=== PATIENT | male | born 1940 | race Caucasian/White ===

== ENCOUNTER 2017-04-02 11:52 | Emergency (ER) | payer OTHER ==
[~2017-04-02] VITALS: Ht 172.7 cm; Wt 101.4 kg
[~2017-04-02 11:52] MED LIST: ALBU1AER9 INH; ASPEC81 PO; ATEN-173 PO; GLC500 PO; LPT10 PO; LSN5 PO; MULT-506 PO; NTRGSL/4 UT; OMEG10007 PO
[2017-04-02 12:05] VITALS: TEMP 36.7; Ht 172.7 cm; Wt 101.4 kg
[2017-04-02] MEDS ORDERED: XYLOCAINE 1%/SOD BICARB 20 ML VIAL INFIL ONE (12:30)
[2017-04-02] MEDS ORDERED: ASPI81TA28 PO (12:51)
[2017-04-02] MEDS ORDERED: METF500T5 PO (12:51)
[2017-04-02] MEDS ORDERED: ATOR-24 PO (12:51)
--- NOTE | 2017-04-02 13:07 | EMERGENCY ROOM VISIT NOTE ---
ED Visit Note First contact with patient: 12:12 CHIEF COMPLAINT: Left Arm laceration HISTORY OF PRESENT ILLNESS: This 36-year-old male presents the ER with chief complaint of a laceration to his left forearm. The patient states that he was using a cutting wheel and accidentally cut into his left forearm. The patient denies any active bleeding. He denies any known since tingling in his fingers. The patient states he is able to move his wrist without difficulty. The patient's tetanus is up-to-date. REVIEW OF SYSTEMS: 6 system review was performed and was negative unless stated otherwise in history of present illness. PMH: The patient is healthy; see chronic problem list. This was reviewed with the patient. Only additional surgery was cardiac stent placement. SOCIAL HISTORY: Patient lives with his . The patient admits to tobacco use but denies any alcohol use. PHYSICAL EXAM: Vital Signs: Were reviewed Reviewed Nurse's notes. GENERAL: 76- year-old white male appears in no acute distress. MENTAL STATUS: Alert and oriented 3. LEFT ARM: There is a 6 cm long laceration on the anterior aspect of the forearm. The edges are gaping widely apart. There is no foreign material in the wound and it looks slightly dirty. There is no active bleeding. No deep structures such as tendons or nerves are seen in the base of the wound. EMERGENCY DEPARTMENT COURSE: The patient was evaluated. The patient's EMR and medication list were reviewed. PROCEDURE:Wound Repair: Complexity: Basic. Verbal consent was obtained after the risks and benefits were explained, including but not limited to bleeding, scarring, infection, pain, and bone/joint /nerve damage. The skin was prepped with betadine and a sterile field set. The wound was anesthetized with 6.0 ml of 1% buffered lidocaine. With direct pressure the bleeding subsided. Copious irrigation was performed using sterile saline. The wound was explored for foreign bodies and none found. Debridement was not performed. The wound edges were approximated using 5-0 Ethilon with 8 simple interrupted sutures. Hemostasis and excellent approximation was achieved. Antibacterial ointment and a sterile dressing applied. Detailed wound care instructions and signs and symptoms of infection reviewed with the patient. No complications and the patient tolerated the procedure well. The patient was independently evaluated by Dr. Jimenez who agreed with treatment plan. The patient is diabetic therefore he was given Keflex 500 mg by mouth while in the emergency room and was given a Keflex home pack to take tomorrow since his pharmacy is closed. The patient was discharged home in stable condition. DIAGNOSIS: 6 cm left arm laceration DISCHARGE INSTRUCTIONS & TREATMENT: Take Keflex as prescribed. Watch the area carefully for signs of infection such as redness, swelling, or tenderness. Return if any of these appear for re-evaluation and consideration IV antibiotic therapy. The stitches should be taken out in 10 days. Read the wound care general instructions that you were given also. Bacitracin and a bandage on the wound for 3 days. Keep wound dry for 24 hours then you may get it wet but do not soak the arm in water. Problem List Medical Problems: (1) COPD (chronic obstructive pulmonary disease) Status: Chronic (2) Coronary artery disease Permanent Comment: S/P stenting RCA Status: Chronic (3) Diabetes mellitus, type II Status: Chronic (4) Dyslipidemia Status: Chronic (5) History of adenomatous polyp of colon Status: Chronic (6) Hypertension Status: Chronic (7) Status post hernia repair Status: Chronic (8) Tobacco use Status: Chronic Surgical Problems: (1) Status post cholecystectomy Permanent Comment: 2010 Dr. Rivera Status: Chronic (2) Status post coronary artery stent placement Permanent Comment: PCI RCA with stenting [facility] – [place] Status: Chronic (3) Status post partial colectomy Status: Chronic Current/Historical Medications Scheduled Aspirin (Aspirin Ec), 81 MG PO DAILY Atorvastatin (Lipitor), 40 MG PO DAILY Fish Oil (Mooers-3), 1 CAP PO DAILY Lisinopril (Lisinopril), 5 MG PO DAILY Metformin Hcl Er (Glucophage Er), 500 MG PO QPM Multivitamin (Multivitamin), 1 TAB PO DAILY Nitroglycerin (Nitrostat), 0.4 MG UT PRN Allergies Coded Allergies: No Known Allergies (Verified , 04/02/17) Vital Signs Date Time Temp Pulse Resp B/P (MAP) Pulse Ox O2 Delivery O2 Flow Rate FiO2 04/02/17 12:05 36.7 82 20 157/85 94 Room Air Departure Information Referrals Barry Arzola M.D.([facility]) (PCP) Patient Instructions My [facility]
[2017-04-02] MEDS ORDERED: CEPH500C PO (13:09)
[2017-04-02] MEDS ORDERED: CEPHALEXIN 500MG HOME PACK 1 EA BTL PO ONE (13:15)
[2017-04-02] MEDS ORDERED: CEPHALEXIN MONOHYDRATE 250 MG CAP PO ONE (13:15)
[2017-04-02 13:32] VITALS: BP 141/80; PULSE 71; O2SAT 94
--- NOTE | 2017-04-02 15:58 | EMERGENCY ROOM VISIT NOTE ---
ED Visit Note First contact with patient: 12:12 I have personally seen and evaluated the patient with the PA. I agree with the diagnosis and management decisions and have been personally involved in the case. Please see Cleo smart PA-C's notes for further details of the history, physical and visit.
== END 2017-04-02 13:36 | disposition home or self-care (01) ==
LOC: C.EDB 11:53 → C.EDD 13:36
DX: S51.812A Laceration without foreign body of left forearm, initial encounter (principal); W31.1XXA Contact with metalworking machines, initial encounter; J44.9 Chronic obstructive pulmonary disease, unspecified; I25.10 Atherosclerotic heart disease of native coronary artery without angina pectoris; E11.9 Type 2 diabetes mellitus without complications; E78.5 Hyperlipidemia, unspecified; I10 Essential (primary) hypertension; Z79.82 Long term (current) use of aspirin; Z79.899 Other long term (current) drug therapy; Z72.0 Tobacco use

== ENCOUNTER 2025-02-25 11:14 | Inpatient (IN) ==
[2025-02-25 12:11] LABS: Hematocrit (blood only) 35.0 % (42.0-52.0); Hemoglobin 11.5 g/dl (14.0-18.0); Immature Granulocytes # (auto) 0.04 K/uL (0.01-0.20); Immature Granulocytes % (auto) 0.7 %; Mean Corpuscular Hemoglobin 29.6 pg (25.0-34.0); Mean Corpuscular Volume 90.2 fL (80.0-100.0); Platelet Count 270 K/uL (130-400); RDW Standard Deviation 51.2 fL (36.4-46.3); Red Blood Count 3.88 M/uL (4.70-6.10); White Blood Count 5.97 K/ul (4.8-10.8)
[2025-02-25] MEDS: SODIUM CHLORIDE 0.9% 1,000 ML IV SCH ×2 (12:15→17:35)
--- NOTE | 2025-02-25 12:32 | XRay Report ---
XR chest 1V portable CLINICAL HISTORY: weakness COMPARISON STUDY: 02/21/2025 FINDINGS: Stable cardiomegaly with pulmonary vascular congestion. Stable mild stranding opacity in th e lung bases. No lobar consolidation, pleural effusion, or pneumothorax seen. IMPRESSION: Stable exam. ACT 112: Negative or not required by law. Electronically signed by: Medardo Frances M.D. 02/25/2025 12:31 PM
[2025-02-25 12:33] LABS: Alanine Aminotransferase 27 U/L (7-52); Albumin Globulin Ratio 1.0 (0.9-2); Alkaline Phosphatase 125 U/L (34-104); Anion Gap 9 (3-11); Bilirubin,Total 0.6 mg/dl (0.2-1.0); Blood Urea Nitrogen 11 mg/dl (6-23); Calcium 8.6 mg/dl (8.6-10.3); Carbon Dioxide 26 mmol/L (21-32); Chloride 105 mmol/L (98-107); Globulin 3.1 gm/dl (2.5-4.0); Glucose 130 mg/dl (70-99(Fasting)); Potassium 3.9 mmol/L (3.5-5.1); Sodium 140 mmol/L (136-145); Total Protein 6.3 gm/dl (6.0-8.3)
[2025-02-25 12:42] LABS: INR 1.1 (0.9-1.1); Prothrombin Time 11.4 Seconds (9.0-12.0)
--- NOTE | 2025-02-25 13:01 | CT Scan Report ---
CT head/brain wo con CLINICAL HISTORY: 84 years-old Male with weakness, SDH. Acute weakness TECHNIQUE: Multiple axial CT images of the head were obtained without contrast. A dose lowering tech nique was utilized adhering to the principles of ALARA. CT DOSE: 703.85 mGy.cm COMPARISON: Head CT 02/21/2025, brain MRI 04/26/2006 FINDINGS: No acute intracranial hemorrhage, midline shift, intracranial mass, hydrocephalus, territorial ischem ia or abnormal extra-axial collection. Involutional changes with chronic microvascular ischemic disea se. Coarse calcifications of the falx cerebri. The calvarium is intact. Bilateral mastoid effusions. The paranasal sinuses are generally clear. IMPRESSION: 1. No acute intracranial abnormality. 2. Involutional changes with chronic microvascular ischemic disease. 3. Prominence of the subdural spaces has been present dating back to the 2005 MRI secondary to cerebr al atrophy. No subdural hemorrhage is present on today's study or on the 02/21/2025 exam. ACT 112: Negative or not required by law. The above report was generated using voice recognition software. It may contain grammatical, syntax o r spelling errors. Electronically signed by: Joseph Quezada M.D. 02/25/2025 12:58 PM
[2025-02-25 13:09] LABS: Magnesium 1.8 mg/dl (1.7-2.4)
[2025-02-25 13:25] LABS: Thyroid Stimulating Hormone 2.452 uIu/ml (0.300-4.500)
[2025-02-25] MEDS ORDERED: MAGNESIUM HYDROXIDE SUSP 30 ML UDC PO PRN (14:15)
[2025-02-25] MEDS ORDERED: GLUCOSE 40% GEL 15 GM TUBE PO PRN (14:15)
[2025-02-25] MEDS ORDERED: ONDANSETRON INJ 2 MG/ML 2 ML VIAL IV PRN (14:15)
[2025-02-25] MEDS ORDERED: ALUMINUM/MAGNESIUM SUSP 30 ML UDC PO PRN (14:15)
[2025-02-25] MEDS ORDERED: DEXTROSE 50% 50 ML SYRINGE IV PRN (14:15)
[2025-02-25] MEDS ORDERED: GLUCOSE 10 TAB/TUBE PO PRN (14:15)
[2025-02-25] MEDS ORDERED: ACETAMINOPHEN 325 MG TAB PO PRN (14:15)
[2025-02-25] MEDS ORDERED: CARBOHYDRATES FOR HYPOGLYCEMIA PO PRN (14:15)
[2025-02-25] MEDS ORDERED: GLUCAGON FOR INJ 1 MG VIAL SQ PRN (14:15)
[2025-02-25] MEDS ORDERED: ALBUTEROL 0.083% NEBU SOLN 3 ML VIAL INH PRN (14:51)
--- NOTE | 2025-02-25 15:11 | Emergency Department Note ---
ED Provider Note CHIEF COMPLAINT: Hypotension, falls HISTORY OF PRESENT ILLNESS: This 84-year-old male patient with past medical history of recurrent falls, chronic anticoagulation presents to the emergency department with complaints of dizziness and low blood pressure. The patient was recently sent to [facility] for a subdural hematoma however after being evaluated by neurosurgery and was told this was a chronic finding. The patient has continued his anticoagulation and blood pressure medications as advised. He has been having persistently low blood pressures between his outpatient visit and PCP. Patient's son is at the bedside and states he lives at home by himself. They are concerned about his recurrent hypotension and would like to be admitted to the hospital for medication adjustments and safety of the patient. REVIEW OF SYSTEMS: A review of systems was performed with positives and pertinent negatives listed in the history of present illness. 10 systems were reviewed and are otherwise negative. ALLERGIES: see below MEDICATIONS: see below PMH: see below SOCIAL HISTORY: see below DDx: Dehydration, medication effect, UTI, intracranial hemorrhage, GI bleed/anemia among others. PHYSICAL EXAM: Vital signs reviewed. Noted to be hypotensive. General: Chronically ill-appearing 84-year-old male, in no significant distress. HEENT: No scleral icterus/conjunctival injection, PERRLA, neck supple. Older appearing ecchymosis noted to the right forehead. Cardiovascular: Regular rate and rhythm, no extra sounds. Pulmonary: Clear to auscultation bilaterally, normal work of breathing. Abdomen: Soft, nontender, nondistended, positive bowel sounds. Musculoskeletal: Atraumatic, no peripheral edema. Neurologic: Patient awake alert and oriented x 3, speech is clear. Answers all questions appropriately and follows commands. Equal strength in all 4 extremities. Skin: Warm, dry, no rash EMERGENCY DEPARTMENT COURSE/MDM: [] MONITORING: An order for cardiac monitoring was placed and the patient is noted to be in a normal sinus rhythm at 62 beats per minute. RADIOLOGY: Head CT: IMPRESSION: 1. No acute intracranial abnormality. 2. Involutional changes with chronic microvascular ischemic disease. 3. Prominence of the subdural spaces has been present dating back to the 2005 MRI secondary to cerebral atrophy. No subdural hemorrhage is present on today's study or on the 02/21/2025 exam. Chest x-ray to my interpretation reveals no evidence of focal lung consolidation or failure. EKG: To my interpretation reveals atrial fibrillation at 70 bpm, QTc of 462. Normal ST segments. No PVC, no PAC. DISPOSITION: Home Past Med/Surg History Problem List Fall (Acute) Trauma (Acute) Subdural hematoma (Acute) History of colon polyps Encounter for pre-operative examination Chest pain (Acute) Hypertension (Chronic) Diabetes mellitus, type II (Chronic) Dyslipidemia (Chronic) COPD (chronic obstructive pulmonary disease) (Chronic) Status post hernia repair (Chronic) Tobacco use (Chronic) History of adenomatous polyp of colon (Chronic) Status post cholecystectomy (Chronic) "2010 Dr. Rivera" Status post partial colectomy (Chronic) perforated colon during colonoscopy Coronary artery disease (Chronic) "S/P stenting RCA"--follows with Dr. Garcia Status post coronary artery stent placement (Chronic) "PCI RCA with stenting [facility] [place]" Medical History BPH (benign prostatic hyperplasia) Diabetes mellitus, type 2 Hearing deficit Hypertension Hyperlipidemia Asthma Surgical History History of lumbar spinal fusion x2 History of umbilical hernia repair x2 History of appendectomy History of colonoscopy roughly 10yrs ago had a perforated colon during a colonoscopy---had to had an emergency colectomy History of tooth extraction all teeth History of tonsillectomy and adenoidectomy History of bilateral cataract extraction Family History Other No family history of adverse response to anesthesia Social History Smoking Status: Current every day smoker Tobacco Type: Cigarettes Cigarettes Per Day: 10 a day; Second Hand Exposure: Yes (parents smoked); Do You Dip or Chew Tobacco: No; Hx Alcohol Use: No Hx Substance Use: No Preferred Language: Montserratian Communication Ability: Effective Plug Paster Required: No Beliefs That Will Affect Care: Taoism Current Living Situation: Spouse Feels Safe at Home: Yes Assistive Devices: Denture - Upper, Denture - Lower, Glasses and Hearing Aid - Bilateral Allergies Allergies Allergy/AdvReac Type Severity Reaction Status Date / Time No Known Allergies Allergy Mild Verified 02/25/25 14:36 Home Meds Home Medications Medication Instructions Recorded Confirmed aspirin 81 mg tablet,delayed 81 mg PO QAM 05/14/19 02/25/25 release atorvastatin 40 mg tablet 40 mg PO HS 05/14/19 02/25/25 finasteride 5 mg tablet 5 mg PO QAM 05/14/19 02/25/25 fluocinonide 0.05 % topical 1 applic topical BID PRN Rash 05/14/19 02/25/25 ointment lisinopril 20 mg tablet 0 mg PO QAM 05/14/19 02/25/25 magnesium oxide 400 mg PO QPM 05/14/19 02/25/25 metformin 500 mg tablet,extended 1,000 mg PO PM 05/14/19 02/25/25 release 24 hr nitroglycerin 0.4 mg sublingual 0.4 mg sublingual DIRECTED PRN 05/14/19 02/25/25 tablet Angina albuterol sulfate 2.5 mg/3 mL 2.5 mg continuous nebulization Q4H 02/21/25 02/25/25 (0.083 %) solution for nebulization PRN Shortness Of Breath Or Wheezing apixaban 5 mg tablet (Eliquis) 5 mg PO BID 02/21/25 02/25/25 escitalopram oxalate 5 mg tablet 5 mg PO QAM 02/21/25 02/25/25 fluticasone fur. 100 mcg-umeclid 1 inh inhalation DAILY 02/21/25 02/25/25 62.5 mcg-vilant 25 mcg inhalat.powder (Trelegy Ellipta) furosemide 20 mg tablet 20 mg PO QAM 02/21/25 02/25/25 metoprolol succinate 25 mg 25 mg PO BID 02/21/25 02/25/25 tablet,extended release 24 hr tamsulosin 0.4 mg capsule 0.8 mg PO DAILY 02/21/25 02/25/25 Results & Data (ED) Vital Signs Vital Signs - 24 hr 02/25/25 11:16 02/25/25 11:38 02/25/25 11:45 Temperature 36.6 C Temperature Source Oral Pulse Rate 69 61 58 L Pulse Rate [Apical] Respiratory Rate 20 16 14 Blood Pressure 109/65 91/55 L Blood Pressure [Left Arm] Blood Pressure Mean 80 67 Blood Pressure Mean [Left Arm] Pulse Oximetry 96 96 95 Oxygen Delivery Method Room Air Sepsis Recent Fever Within 48 Hours No Sepsis New/Unexplained Change in Mental Status Yes Sepsis Action Taken by Nursing No Action Required 02/25/25 12:09 02/25/25 12:16 02/25/25 12:53 Temperature Temperature Source Pulse Rate 64 68 73 Pulse Rate [Apical] Respiratory Rate 16 18 Blood Pressure 94/60 L 112/66 Blood Pressure [Left Arm] Blood Pressure Mean 71 70 Blood Pressure Mean [Left Arm] Pulse Oximetry 94 96 Oxygen Delivery Method Sepsis Recent Fever Within 48 Hours Sepsis New/Unexplained Change in Mental Status Sepsis Action Taken by Nursing 02/25/25 13:00 02/25/25 13:00 Temperature Temperature Source Pulse Rate Pulse Rate [Apical] 62 Respiratory Rate 17 Blood Pressure Blood Pressure [Left Arm] 105/61 Blood Pressure Mean Blood Pressure Mean [Left Arm] 75 Pulse Oximetry 95 95 Oxygen Delivery Method Room Air Room Air Sepsis Recent Fever Within 48 Hours Sepsis New/Unexplained Change in Mental Status Sepsis Action Taken by Long-Term Medications Current Medication List: was personally reviewed by me Laboratory Data Attestation: I reviewed the patient's lab results. 02/25/25 11:33 02/25/25 11:33 Lab Results 02/25/25 02/25/25 Range/Units 11:33 12:29 WBC 5.97 (4.8-10.8) K/ul RBC 3.88 L (4.70-6.10) M/uL Hgb 11.5 L (14.0-18.0) g/dl Hct 35.0 L (42.0-52.0) % MCV 90.2 (80.0-100.0) fL MCH 29.6 (25.0-34.0) pg MCHC 32.9 (32.0-36.0) g/dL RDW Std Deviation 51.2 H (36.4-46.3) fL RDW Coeff of Mati 15.5 H (11.5-14.5) % Plt Count 270 (130-400) K/uL MPV 9.9 (9.4-12.4) fL Immature Gran % (Auto) 0.7 % Neut % (Auto) 76.9 % Lymph % (Auto) 14.2 % Will % (Auto) 7.0 % Eos % (Auto) 0.7 % Baso % (Auto) 0.5 % Neut # (Auto) 4.59 (1.40-6.50) K/uL Lymph # (Auto) 0.85 L (1.20-3.40) K/uL Will # (Auto) 0.42 (0.11-0.59) K/uL Eos # (Auto) 0.04 (0.00-0.50) K/uL Baso # (Auto) 0.03 (0.00-0.20) K/uL Immature Gran # (Auto) 0.04 (0.01-0.20) K/uL PT 11.4 (9.0-12.0) Seconds INR 1.1 (0.9-1.1) Sodium 140 (136-145) mmol/L Potassium 3.9 (3.5-5.1) mmol/L Chloride 105 (98-107) mmol/L Carbon Dioxide 26 (21-32) mmol/L Anion Gap 9 (3-11) BUN 11 (6-23) mg/dl Creatinine 0.86 (0.6-1.4) mg/dl Est Cr Clr Drug Dosing Not Reportable eGFR 86.45 BUN/Creatinine Ratio 12.8 (10-20) Glucose 130 H (70-99(Fasting)) mg/dl Lactate 1.9 (0.4-2.0) mmol/L Calcium 8.6 (8.6-10.3) mg/dl Magnesium 1.8 (1.7-2.4) mg/dl Total Bilirubin 0.6 (0.2-1.0) mg/dl AST 85 H (13-39) U/L ALT 27 (7-52) U/L Alkaline Phosphatase 125 H (34-104) U/L Troponin I High Sens 40.5 H 36.7 H (0-20) pg/ml B-Natriuretic Peptide 696 H (0-100) pg/ml Total Protein 6.3 (6.0-8.3) gm/dl Albumin 3.2 L (3.4-5.0) gm/dl Globulin 3.1 (2.5-4.0) gm/dl Albumin/Globulin Ratio 1.0 (0.9-2) TSH 2.452 (0.300-4.500) uIu/ml Administered Medications Sodium Chloride (Nss) 1,000 mls @ 200 mls/hr IV .Q5H CORNELL Stop: 02/25/25 17:14 Last Admin: 02/25/25 12:15 Dose: 200 mls/hr Documented By: ROBERT Imaging Data Radiologist's Impression: Head CT 02/25/25 12:10 CT head/brain wo con CLINICAL HISTORY: 84 years-old Male with weakness, SDH. Acute weakness TECHNIQUE: Multiple axial CT images of the head were obtained without contrast. A dose lowering technique was utilized adhering to the principles of ALARA. CT DOSE: 703.85 mGy.cm COMPARISON: Head CT 02/21/2025, brain MRI 04/26/2006 FINDINGS: No acute intracranial hemorrhage, midline shift, intracranial mass, hydrocephalus, territorial ischemia or abnormal extra-axial collection. Involutional changes with chronic microvascular ischemic disease. Coarse calcifications of the falx cerebri. The calvarium is intact. Bilateral mastoid effusions. The paranasal sinuses are generally clear. IMPRESSION: 1. No acute intracranial abnormality. 2. Involutional changes with chronic microvascular ischemic disease. 3. Prominence of the subdural spaces has been present dating back to the 2005 MRI secondary to cerebral atrophy. No subdural hemorrhage is present on today's study or on the 02/21/2025 exam. ACT 112: Negative or not required by law. The above report was generated using voice recognition software. It may contain grammatical, syntax or spelling errors. Electronically signed by: Joseph Quezada M.D. 02/25/2025 12:58 PM Chest X-Ray 02/25/25 12:11 XR chest 1V portable CLINICAL HISTORY: weakness COMPARISON STUDY: 02/21/2025 FINDINGS: Stable cardiomegaly with pulmonary vascular congestion. Stable mild stranding opacity in the lung bases. No lobar consolidation, pleural effusion, or pneumothorax seen. IMPRESSION: Stable exam. ACT 112: Negative or not required by law. Electronically signed by: Medardo Frances M.D. 02/25/2025 12:31 PM Discharge Plan Visit Data Chief Complaint: Referred by Doctor Stated Complaint: LOW BP,DOC REF ED Provider: Nuria Jimenez Forms Stand Alone Forms: My [employer] Prescriptions Prescriptions: No Action atorvastatin 40 mg Tablet 40 mg PO HS lisinopril 20 mg Tablet 0 mg PO QAM Rx Instructions: Per pharmacy, this medication is discontinued. However pt states he is still taking. There is a 30mg on file, and it is also discontinued. Original Directions: 20mg by mouth in the morning fluocinonide 0.05 % Ointment 1 applic TOPICAL BID PRN (Reason: Rash) aspirin 81 mg Tablet,Delayed Release (Dr/Ec) 81 mg PO QAM Rx Instructions: Unable to verify OTC meds at this date/time. nitroglycerin 0.4 mg Tablet, Sublingual 0.4 mg sublingual DIRECTED PRN (Reason: Angina) metformin 500 mg Tablet Extended Release 24 Hr 1,000 mg PO PM finasteride 5 mg Tablet 5 mg PO QAM magnesium oxide 400 mg magnesium Tablet 400 mg PO QPM Rx Instructions: Unable to verify OTC meds at this date/time. albuterol sulfate 2.5 mg /3 mL (0.083 %) solution for nebulization 2.5 mg continuous nebulization Q4H PRN (Reason: Shortness Of Breath Or Wheezing) tamsulosin 0.4 mg capsule 0.8 mg PO DAILY furosemide 20 mg tablet 20 mg PO QAM metoprolol succinate 25 mg tablet extended release 24 hr 25 mg PO BID escitalopram oxalate 5 mg tablet 5 mg PO QAM Eliquis 5 mg tablet 5 mg PO BID Trelegy Ellipta 100-62.5-25 mcg blister with device 1 inh INHALATION DAILY Referrals Referrals: Caleb Pérez MD [Primary Care Provider] -
--- NOTE | 2025-02-25 15:22 | History & Physical Report ---
Date of Service February 25, 2025 Assessment & Plan (1) Fall: Plan Hypotension Possible orthostatic hypotension component: for fall Frequent falls Patient reports dealing with issues of low blood pressure and dizziness for a long time, recently worsened. Patient reports legs giving out and falls, about 3 falls in the last week. Patient on blood thinner, CT head with no acute finding. Will hold home medications, lisinopril Lasix and tamsulosin. Orthostatic vitals, continue telemetry monitoring PT/OT, compression stockings, slow transition during changing position. Possible UTI: Patient complains of pain and burning with passing urine for about a week time, will initiate Rocephin, will get urinalysis, follow. Paroxysmal A-fib: Patient on Eliquis, has been having recurrent falls, if patient's blood pressure does not improve and he continues to have recurrent falls, then risks and benefits of continuing anticoagulation needs to be discussed with the patient and his family. For now continue Eliquis while in hospital, maintain fall precaution. Other chronic medical conditions: T2DM, COPD, SVT, pulmonary hypertension, BPH. Continue with/resume home meds as and when able. SSI. DVT prophylaxis: Eliquis Full DNR/DNI History of Present Illness Chief Complaint: Fall, low blood pressure Primary Care Provider: Caleb Pérez MD 84-year-old male with PMH of T2DM, COPD, CAD, HTN, SVT, PAF on Eliquis, pHTN, BPH with LUTS, E. tube dysfunction, SNHL bilateral, psoriasis presents to the ED at referral of PCP office for recurrent falls and low blood pressure. Patient reports he has been having issues of low blood pressure and dizziness for months now, he stopped his Flomax and finasteride few weeks ago and experienced improvement in his dizziness and low blood pressure. But he started having trouble urinating and he restarted the these medications last week since then he has had low blood pressure and 3 falls. Today he was being evaluated in the PCP office, he stated that he had lightheadedness when he stood up from sitting position to go to the examination room, his blood pressure was noted to be 80/41. Patient denies fever/sore throat/cough/nausea/vomiting/diarrhea. Patient reports moving bowels ok and reports good appetite. Patient reports pain and burning while passing urine for about a week time. Will get urinalysis. Patient reports continuing smoking about half pack a day now, has been smoking for 60 years. Denies alcohol and recreational drugs. Medications reviewed with the patient and his children at bedside. DNI/DNI Plan of care discussed with the patient and his children at bedside, they voiced understanding. Allergies Allergy/AdvReac Type Severity Reaction Status Date / Time No Known Allergies Allergy Mild Verified 05/22/19 08:12 Home Medications Medication Instructions Recorded Confirmed Type aspirin 81 mg tablet,delayed 81 mg PO QAM 05/14/19 02/21/25 History release atorvastatin 40 mg tablet 40 mg PO HS 05/14/19 02/21/25 History finasteride 5 mg tablet 5 mg PO QAM 05/14/19 02/21/25 History fluocinonide 0.05 % topical 1 applic topical BID PRN Rash 05/14/19 02/21/25 History ointment lisinopril 20 mg tablet 20 mg PO QAM 05/14/19 02/21/25 History magnesium oxide 400 mg PO QPM 05/14/19 02/21/25 History metformin 500 mg tablet,extended 1,000 mg PO PM 05/14/19 02/21/25 History release 24 hr multivitamin 1 tab PO QAM 05/14/19 02/21/25 History nitroglycerin 0.4 mg sublingual 0.4 mg sublingual UD PRN Angina 05/14/19 02/21/25 History tablet omega 2-ksw-skq-fish oil 1,000 mg 1 cap PO QAM 05/14/19 02/21/25 History (120 mg-180 mg) capsule (Fish Oil) albuterol sulfate 2.5 mg/3 mL 2.5 mg continuous nebulization Q4H 02/21/25 02/21/25 History (0.083 %) solution for nebulization PRN Shortness Of Breath Or Wheezing apixaban 5 mg tablet (Eliquis) 5 mg PO BID 02/21/25 02/21/25 History escitalopram oxalate 5 mg tablet 5 mg PO QAM 02/21/25 02/21/25 History fluticasone fur. 100 mcg-umeclid 1 inh inhalation DAILY 02/21/25 02/21/25 History 62.5 mcg-vilant 25 mcg inhalat.powder (Trelegy Ellipta) furosemide 20 mg tablet 20 mg PO DAILY 02/21/25 02/21/25 History metoprolol succinate 25 mg 25 mg PO BID 02/21/25 02/21/25 History tablet,extended release 24 hr tamsulosin 0.4 mg capsule 0.8 mg PO DAILY 02/21/25 02/21/25 History Past Med/Surg History Problem List Fall (Acute) Trauma (Acute) Subdural hematoma (Acute) History of colon polyps Encounter for pre-operative examination Chest pain (Acute) Hypertension (Chronic) Diabetes mellitus, type II (Chronic) Dyslipidemia (Chronic) COPD (chronic obstructive pulmonary disease) (Chronic) Status post hernia repair (Chronic) Tobacco use (Chronic) History of adenomatous polyp of colon (Chronic) Status post cholecystectomy (Chronic) "2010 Dr. Rivera" Status post partial colectomy (Chronic) perforated colon during colonoscopy Coronary artery disease (Chronic) "S/P stenting RCA"--follows with Dr. Garcia Status post coronary artery stent placement (Chronic) "PCI RCA with stenting [facility] [place]" Medical History (Updated 02/21/25 @ 15:54 by Jessee Conner DO) BPH (benign prostatic hyperplasia) Diabetes mellitus, type 2 Hearing deficit Hypertension Hyperlipidemia Asthma Surgical History History of lumbar spinal fusion x2 History of umbilical hernia repair x2 History of appendectomy History of colonoscopy roughly 10yrs ago had a perforated colon during a colonoscopy---had to had an emergency colectomy History of tooth extraction all teeth History of tonsillectomy and adenoidectomy History of bilateral cataract extraction Family History Other No family history of adverse response to anesthesia Social History Smoking Status: Current every day smoker Tobacco Type: Cigarettes Cigarettes Per Day: 10 a day; Second Hand Exposure: Yes (parents smoked); Do You Dip or Chew Tobacco: No; Hx Alcohol Use: No Hx Substance Use: No Preferred Language: Armenian Communication Ability: Effective Car Rental [employer] Required: No Beliefs That Will Affect Care: Sabianism Current Living Situation: Spouse Feels Safe at Home: Yes Assistive Devices: Denture - Upper, Denture - Lower, Glasses and Hearing Aid - Bilateral Review of Systems Review of Systems: Negative otherwise mentioned in HPI. Physical Exam Physical Exam: GENERAL: Alert and oriented x3. NAD, on RA. Elderly, appears weak. HEENT: No pallor, no icterus. Pupils equal, round and reactive to light. Oral mucosa moist. NECK: No JVD, no neck masses. HEART: S1 and S2 heard. Regular rate and rhythm. No murmur, no gallop. RESPIRATORY SYSTEM: Normal AP diameter. No accessory muscle use. No wheezing, no crackles. ABDOMEN: Soft, bowel sounds present, nontender, no distention. CENTRAL NERVOUS SYSTEM: No facial droop. Speech is clear. Obeys simple commands. Moves extremities. EXTREMITIES: No edema, no erythema seen. Results & Data Results & Data Vital Signs (Past 12 Hours) Vital Signs Temp Pulse Pulse Resp BP BP Pulse Ox 02/25/25 13:00 62 17 105/61 95 02/25/25 13:00 95 02/25/25 12:53 73 02/25/25 12:16 68 18 112/66 96 02/25/25 12:09 64 16 94/60 L 94 02/25/25 11:45 58 L 14 91/55 L 95 02/25/25 11:38 61 16 109/65 96 02/25/25 11:16 36.6 C 69 20 96 O2 Del Method 02/25/25 13:00 Room Air 02/25/25 13:00 Room Air 02/25/25 12:53 02/25/25 12:16 02/25/25 12:09 02/25/25 11:45 02/25/25 11:38 02/25/25 11:16 Room Air (1) Fall Encounter type: initial encounter Qualified Code(s): W19.XXXA - Unspecified fall, initial encounter
[2025-02-25 15:47] LABS: Appearance Urine Clear (Clear); Bacteria Urine Automated None Seen (None Seen); Cast Urine Automated 0-2 /lpf (0-2); Epithelial Cell Urine Auto 0-2 /hpf (0-2); Glucose Urine UA Negative (Negative); WBC Urine Automated 0-5 /hpf (0-5)
[2025-02-25] MEDS: Patient's HEIGHT &/or WEIGHT Needed STA (17:21)
[2025-02-25] MEDS: INSULIN ASPART PER UNIT CHARGE SC SCH (17:24)
[2025-02-25] MEDS: cefTRIAXone SODIUM 2,000 MG/50 ML BAG IV STA (17:55)
[2025-02-25 19:39] VITALS: RESP 18
[2025-02-25] MEDS: APIXABAN 5 MG TABLET PO SCH (22:05)
[2025-02-25] MEDS: METOPROLOL SUCC 25MG EXT REL TAB PO SCH (22:05)
[2025-02-25] MEDS: ATORVASTATIN 40 MG TAB PO SCH (22:06)
[2025-02-25] MEDS: MAGNESIUM OXIDE 400 MG TAB PO SCH (22:06)
[2025-02-26 06:58] LABS: Hematocrit (blood only) 35.2 % (42.0-52.0); Hemoglobin 11.4 g/dl (14.0-18.0); Mean Corpuscular Hemoglobin 29.7 pg (25.0-34.0); Mean Corpuscular Volume 91.7 fL (80.0-100.0); Platelet Count 277 K/uL (130-400); RDW Standard Deviation 52.1 fL (36.4-46.3); Red Blood Count 3.84 M/uL (4.70-6.10); White Blood Count 6.42 K/ul (4.8-10.8)
[2025-02-26 07:14] LABS: Anion Gap 8.0 (3-11); Blood Urea Nitrogen 13.0 mg/dl (6-23); Calcium 8.4 mg/dl (8.6-10.3); Carbon Dioxide 26.0 mmol/L (21-32); Chloride 106.0 mmol/L (98-107); Creatinine Clr Calc Pharmacy 83.3 ml/min; Glucose 109.0 mg/dl (70-99(Fasting)); Magnesium 1.9 mg/dl (1.7-2.4); Potassium 4.0 mmol/L (3.5-5.1); Sodium 140.0 mmol/L (136-145)
[2025-02-26 07:39] LABS: Hemoglobin A1C 6.8 % (4.5-5.6)
[2025-02-26] MEDS: ESCITALOPRAM OXALATE 10 MG TAB PO SCH (08:30)
[2025-02-26] MEDS: ASPIRIN 81 MG ECTAB PO SCH (08:30)
[2025-02-26] MEDS: UMECLIDINIUM/VILANTEROL 62.5/25MCG 7 PUFFS/INHALER INH SCH (08:30)
[2025-02-26] MEDS: FINASTERIDE 5 MG TAB PO SCH (08:30)
[2025-02-26] MEDS: FLUTICASONE FUROATE 100MCG 14 PUFFS/INHALER INH SCH (08:30)
[2025-02-26] MEDS ORDERED: NON-FORMULARY MEDICATION (Fluticasone-Umeclidin-Vilanter [Trelegy Ellipta] 100-62.5-25 mcg INH SCH (09:00)
--- NOTE | 2025-02-26 10:24 | Electrocardiogram Report ---
Test Reason : Blood Pressure : */* mmHG Vent. Rate : 65 BPM Atrial Rate : 65 BPM P-R Int : 126 ms QRS Dur : 90 ms QT Int : 464 ms P-R-T Axes : -2 47 38 degrees QTcB Int : 482 ms Sinus rhythm with Premature supraventricular complexes Nonspecific ST abnormality Prolonged QT Abnormal ECG When compared with ECG of 05-Sep-2024 15:34, Nonspecific T wave abnormality no longer evident in Lateral leads Confirmed by Renato Paul ([id number]) on 02/26/2025 10:24:09 AM Referred By: Caleb Pérez Confirmed By: Renato Paul
--- NOTE | 2025-02-26 12:08 | Hospitalist Progress Note ---
Date of Service February 26, 2025 Assessment & Plan (1) Fall: Plan Frequent falls Patient reports intermittent dizziness Dizziness likely secondary to BPH meds --CT Head:No acute intracranial abnormality. Involutional changes with chronic microvascular ischemic disease. Prominence of the subdural spaces has been present dating back to the 2005 MRI secondary to cerebral atrophy. No subdural hemorrhage is present on today's study or on the 02/21/2025 exam. --Orthostatics normal off Flomax while he is hospitalized PT OT evaluation Fall precautions No issues on telemetry Will need Zio patch as outpatient Hypotension H/O Hypertension Hold lisinopril, tamsulosin Continue metoprolol Succinate 25 mg twice a day Also on finasteride Monitor blood pressure and adjust medications as needed Lower extremity edema Resume Lasix as able Compression stockings Possible UTI: Likely LUTS H/O BPH with LUTS - Urine culture pending -Empirically on Rocephin Paroxysmal A-fib: H/O SVT Continue metoprolol succinate, Eliquis Long-term anticoagulation need to be discussed risks Vs benefits as he has been having recurrent falls Mild troponin elevation Likely demand ischemia hypotension EKG showed nonspecific ST abnormality Troponin trended down Patient denies any chest pain, dyspnea BPH Patient is on finasteride, Flomax at home Medications contributing to dizziness Orthostatics within normal limits off Flomax Continue finasteride Bladder scan as needed to monitor for urinary retention Advised to follow-up with urology as outpatient DM II: HbA1c 6.8 Continue insulin per protocol while hospitalized Monitor blood glucose levels Other chronic medical conditions: COPD, SVT, pulmonary hypertension, CAD, Eustachian tube dysfunction Continue with/resume home meds as able DVT Px: Eliquis Code Status DNR/DNI Disposition Home Admission and Anticipated Discharge Date Admission Date: February 25, 2025 Subjective Patient is seen and examined at bedside Less dysuria today Denies any chest pain, dyspnea, dizziness, nausea, vomiting, abdominal pain Prefers to be discharged home today Review of Systems Review of Systems: All systems reviewed & are unremarkable except as noted in Subjective Physical Exam Physical Exam: Physical Exam: Vitals signs as noted above General Appearance:Overweight, no apparent distress, elderly Head: normocephalic, Atraumatic Eyes: normal inspection, EOMI Neck: supple, Trachea midline Respiratory/Chest: Normal breath sounds, CTA, No accessory muscle use Cardiovascular: S1, S2, No murmur Abdomen/GI:Soft, Non tender, Bowel sounds present Extremities/Musculoskeletal:normal inspection, 2+edema Neurologic/Psych:AAOX3, grossly no focal neurological deficits Skin: normal color, warm Results & Data Results & Data Vital Signs (Past 12 Hours) Vital Signs Temp Pulse Pulse Resp BP Pulse Ox O2 Del Method 02/26/25 11:32 37.4 C 75 18 131/80 93 Room Air 02/26/25 08:16 36.8 C 92 H 18 151/84 H 93 Room Air 02/26/25 07:54 Room Air 02/26/25 05:37 64 02/26/25 03:50 89 02/26/25 03:48 36.6 C 91 H 18 134/64 96 Room Air 02/26/25 01:13 Room Air Laboratory Results Short CBC 02/25/25 02/26/25 Range/Units 11:33 06:23 WBC 5.97 6.42 (4.8-10.8) K/ul Hgb 11.5 L 11.4 L (14.0-18.0) g/dl Hct 35.0 L 35.2 L (42.0-52.0) % Plt Count 270 277 (130-400) K/uL BMP 02/25/25 02/26/25 11:33 06:23 Sodium 140 140 Potassium 3.9 4.0 Chloride 105 106 Carbon Dioxide 26 26 BUN 11 13 Creatinine 0.86 0.78 Glucose 130 H 109 H Calcium 8.6 8.4 L Liver Function 02/25/25 Range/Units 11:33 Total Bilirubin 0.6 (0.2-1.0) mg/dl AST 85 H (13-39) U/L ALT 27 (7-52) U/L Alkaline Phosphatase 125 H (34-104) U/L Albumin 3.2 L (3.4-5.0) gm/dl Urine 02/25/25 Range/Units 15:33 Urine Color Yellow Urine Appearance Clear (Clear) Urine pH 6.5 (4.5-7.5) Ur Specific [place] 1.012 (1.000-1.030) Urine Protein Negative (Negative) Urine Glucose (UA) Negative (Negative) (1) Fall Encounter type: initial encounter Qualified Code(s): W19.XXXA - Unspecified fall, initial encounter
[2025-02-26] MEDS: cefTRIAXone SODIUM 2,000 MG/50 ML BAG IV SCH (14:23)
--- NOTE | 2025-02-26 14:42 | Electrocardiogram Report ---
Test Reason : Blood Pressure : */* mmHG Vent. Rate : 70 BPM Atrial Rate : * BPM P-R Int : * ms QRS Dur : 104 ms QT Int : 428 ms P-R-T Axes : * 50 57 degrees QTcB Int : 462 ms Atrial fibrillation Abnormal ECG When compared with ECG of 21-Feb-2025 10:10, (unconfirmed) Atrial fibrillation has replaced Sinus rhythm Confirmed by Renato Paul ([id number]) on 02/26/2025 2:41:53 PM Referred By: Caleb Pérez Confirmed By: Renato Paul
[2025-02-26 15:29] VITALS: TEMP 98.6; O2SAT 92
--- NOTE | 2025-02-26 15:52 | Discharge Summary ---
Date of Service February 26, 2025 Admission HPI Per Admitting Provider 84-year-old male with PMH of T2DM, COPD, CAD, HTN, SVT, PAF on Eliquis, pHTN, BPH with LUTS, E. tube dysfunction, SNHL bilateral, psoriasis presents to the ED at referral of PCP office for recurrent falls and low blood pressure. Patient reports he has been having issues of low blood pressure and dizziness for months now, he stopped his Flomax and finasteride few weeks ago and experienced improvement in his dizziness and low blood pressure. But he started having trouble urinating and he restarted the these medications last week since then he has had low blood pressure and 3 falls. Today he was being evaluated in the PCP office, he stated that he had lightheadedness when he stood up from sitting position to go to the examination room, his blood pressure was noted to be 80/41. Patient denies fever/sore throat/cough/nausea/vomiting/diarrhea. Patient reports moving bowels ok and reports good appetite. Patient reports pain and burning while passing urine for about a week time. Will get urinalysis. Patient reports continuing smoking about half pack a day now, has been smoking for 60 years. Denies alcohol and recreational drugs. Medications reviewed with the patient and his children at bedside. DNI/DNI Plan of care discussed with the patient and his children at bedside, they voiced understanding. Admission Exam Per Admitting Provider GENERAL: Alert and oriented x3. NAD, on RA. Elderly, appears weak. HEENT: No pallor, no icterus. Pupils equal, round and reactive to light. Oral mucosa moist. NECK: No JVD, no neck masses. HEART: S1 and S2 heard. Regular rate and rhythm. No murmur, no gallop. RESPIRATORY SYSTEM: Normal AP diameter. No accessory muscle use. No wheezing, no crackles. ABDOMEN: Soft, bowel sounds present, nontender, no distention. CENTRAL NERVOUS SYSTEM: No facial droop. Speech is clear. Obeys simple commands. Moves extremities. EXTREMITIES: No edema, no erythema seen. Principal Diagnosis Frequent falls Hypotension Suspected urinary tract infection Benign prostatic hypertrophy Intermittent urinary retention Discharge Data Allergies Allergy/AdvReac Type Severity Reaction Status Date / Time No Known Allergies Allergy Mild Verified 02/25/25 14:36 Procedures Performed Laboratory Results WBC 6.42 K/ul (4.8-10.8) 02/26/25 06: RBC 3.84 M/uL (4.70-6.10) L 02/26/25 06:23 Hgb 11.4 g/dl (14.0-18.0) L 02/26/25 06:23 Hct 35.2 % (42.0-52.0) L 02/26/25 06:23 MCV 91.7 fL (80.0-100.0) 02/26/25 06:23 MCH 29.7 pg (25.0-34.0) 02/26/25 06: MCHC 32.4 g/dL (32.0-36.0) 02/26/25 06: RDW Std Deviation 52.1 fL (36.4-46.3) H 02/26/25 06: RDW Coeff of Mati 15.7 % (11.5-14.5) H 02/26/25 06: Plt Count 277 K/uL (130-400) 02/26/25 06:23 MPV 10.0 fL (9.4-12.4) 02/26/25 06:23 Immature Gran % (Auto) 0.7 % 02/25/25 11:33 Neut % (Auto) 76.9 % 02/25/25 11:33 Lymph % (Auto) 14.2 % 02/25/25 11:33 Owen % (Auto) 7.0 % 02/25/25 11:33 Eos % (Auto) 0.7 % 02/25/25 11:33 Baso % (Auto) 0.5 % 02/25/25 11:33 Neut # (Auto) 4.59 K/uL (1.40-6.50) 02/25/25 11:33 Lymph # (Auto) 0.85 K/uL (1.20-3.40) L 02/25/25 11:33 Owen # (Auto) 0.42 K/uL (0.11-0.59) 02/25/25 11:33 Eos # (Auto) 0.04 K/uL (0.00-0.50) 02/25/25 11:33 Baso # (Auto) 0.03 K/uL (0.00-0.20) 02/25/25 11:33 Immature Gran # (Auto) 0.04 K/uL (0.01-0.20) 02/25/25 11:33 PT 11.4 Seconds (9.0-12.0) 02/25/25 11:33 INR 1.1 (0.9-1.1) 02/25/25 11:33 Sodium 140 mmol/L (136-145) 02/26/25 06:23 Potassium 4.0 mmol/L (3.5-5.1) 02/26/25 06:23 Chloride 106 mmol/L (98-107) 02/26/25 06:23 Carbon Dioxide 26 mmol/L (21-32) 02/26/25 06:23 Anion Gap 8 (3-11) 02/26/25 06:23 BUN 13 mg/dl (6-23) 02/26/25 06:23 Creatinine 0.78 mg/dl (0.6-1.4) 02/26/25 06:23 Est Cr Clr Drug Dosing 83.3 ml/min 02/26/25 06:23 eGFR 89.04 02/26/25 06:23 BUN/Creatinine Ratio 16.7 (10-20) 02/26/25 06:23 Glucose 109 mg/dl (70-99(Fasting)) H 02/26/25 06:23 POC Glucose 112 mg/dl (70-99) H 02/26/25 11:57 Estimat Average Glucose 148 mg/dl 02/26/25 06:23 Hemoglobin A1c 6.8 % (4.5-5.6) H 02/26/25 06:23 Lactate 1.9 mmol/L (0.4-2.0) 02/25/25 12:29 Calcium 8.4 mg/dl (8.6-10.3) L 02/26/25 06:23 Phosphorus 3.1 mg/dl (2.5-4.9) 02/26/25 06:23 Magnesium 1.9 mg/dl (1.7-2.4) 02/26/25 06:23 Total Bilirubin 0.6 mg/dl (0.2-1.0) 02/25/25 11:33 AST 85 U/L (13-39) H 02/25/25 11:33 ALT 27 U/L (7-52) 02/25/25 11:33 Alkaline Phosphatase 125 U/L (34-104) H 02/25/25 11:33 Troponin I High Sens 33.2 pg/ml (0-20) H 02/25/25 14:40 B-Natriuretic Peptide 696 pg/ml (0-100) H 02/25/25 11:33 Total Protein 6.3 gm/dl (6.0-8.3) 02/25/25 11:33 Albumin 3.2 gm/dl (3.4-5.0) L 02/25/25 11:33 Globulin 3.1 gm/dl (2.5-4.0) 02/25/25 11:33 Albumin/Globulin Ratio 1.0 (0.9-2) 02/25/25 11:33 TSH 2.452 uIu/ml (0.300-4.500) 02/25/25 12:29 Urine Color Yellow 02/25/25 15:33 Urine Appearance Clear (Clear) 02/25/25 15: Urine pH 6.5 (4.5-7.5) 02/25/25 15:33 Ur Specific [place] 1.012 (1.000-1.030) 02/25/25 15:33 Urine Protein Negative (Negative) 02/25/25 15:33 Urine Glucose (UA) Negative (Negative) 02/25/25 15: Urine Ketones Negative (Negative) 02/25/25 15: Urine Blood 2+ (Negative) H 02/25/25 15:33 Urine Nitrite Negative (Negative) 02/25/25 15: Urine Bilirubin Negative (Negative) 02/25/25 15:33 Urine Urobilinogen Negative (Negative) 02/25/25 15:33 Ur Leukocyte Esterase Trace (Negative) H 02/25/25 15:33 Urine WBC (Auto) 0-5 /hpf (0-5) 02/25/25 15:33 Urine RBC (Auto) 11-20 /hpf (0-2) H 02/25/25 15:33 U Hyaline Cast (Auto) 0-2 /lpf (0-2) 02/25/25 15:33 U Epithel Cells (Auto) 0-2 /hpf (0-2) 02/25/25 15:33 Urine Bacteria (Auto) None Seen (None Seen) 02/25/25 15:33 Urine Comment 02/25/25 15:[address] 02/25/25 12:10 CT head/brain wo con CLINICAL HISTORY: 84 years-old Male with weakness, SDH. Acute weakness TECHNIQUE: Multiple axial CT images of the head were obtained without contrast. A dose lowering technique was utilized adhering to the principles of ALARA. CT DOSE: 703.85 mGy.cm COMPARISON: Head CT 02/21/2025, brain MRI 04/26/2006 FINDINGS: No acute intracranial hemorrhage, midline shift, intracranial mass, hydrocephal us, territorial ischemia or abnormal extra-axial collection. Involutional changes with chronic microvascular ischemic disease. Coarse calcifications of the falx cerebri. The calvarium is intact. Bilateral mastoid effusions. The paranasal sinuses are generally clear. IMPRESSION: 1. No acute intracranial abnormality. 2. Involutional changes with chronic microvascular ischemic disease. 3. Prominence of the subdural spaces has been present dating back to the 2005 MRI secondary to cerebral atrophy. No subdural hemorrhage is present on today's study or on the 02/21/2025 exam. ACT 112: Negative or not required by law. The above report was generated using voice recognition software. It may contain grammatical, syntax or spelling errors. Electronically signed by: Joseph Quezada M.D. 02/25/2025 12:58 PM Chest X-Ray 02/25/25 12:11 XR chest 1V portable CLINICAL HISTORY: weakness COMPARISON STUDY: 02/21/2025 FINDINGS: Stable cardiomegaly with pulmonary vascular congestion. Stable mild stranding opacity in the lung bases. No lobar consolidation, pleural effusion, or pneumothorax seen. IMPRESSION: Stable exam. ACT 112: Negative or not required by law. Electronically signed by: Medardo Frances M.D. 02/25/2025 12:31 PM Ordered Studies 02/25/25 12:10 CT head/brain wo con Stat Hospital Course (1) Fall: Plan Frequent falls Patient reports intermittent dizziness Dizziness likely secondary to BPH meds --CT Head:No acute intracranial abnormality. Involutional changes with chronic microvascular ischemic disease. Prominence of the subdural spaces has been present dating back to the 2005 MRI secondary to cerebral atrophy. No subdural hemorrhage is present on today's study or on the 02/21/2025 exam. --Orthostatics normal off Flomax while he is hospitalized PT OT evaluation Fall precautions No issues on telemetry Will need Zio patch as outpatient Hypotension H/O Hypertension Hold lisinopril, tamsulosin Continue metoprolol Succinate 25 mg twice a day Also on finasteride Monitor blood pressure and adjust medications as needed Lower extremity edema Resume Lasix on discharge Compression stockings Possible UTI: Likely LUTS H/O BPH with LUTS - Urine culture pending -Empirically on Rocephin> transition to oral antibiotics on discharge Paroxysmal A-fib: H/O SVT Continue metoprolol succinate, Eliquis Long-term anticoagulation need to be discussed risks Vs benefits as he has been having recurrent falls Mild troponin elevation Likely demand ischemia hypotension EKG showed nonspecific ST abnormality Troponin trended down Patient denies any chest pain, dyspnea BPH Patient is on finasteride, Flomax at home Medications contributing to dizziness Orthostatics within normal limits off Flomax Continue finasteride Bladder scan as needed to monitor for urinary retention Advised to follow-up with urology as outpatient DM II: HbA1c 6.8 Continue insulin per protocol while hospitalized Monitor blood glucose levels Other chronic medical conditions: COPD, SVT, pulmonary hypertension, CAD, Eustachian tube dysfunction Continue with/resume home meds as able DVT Px: Eliquis Code Status DNR/DNI Disposition Home Total Time Total Time Spent Total Time Spent (In Minutes): 49 minutes Discharge Plan Discharge Items Patient Disposition: Home - Self-Care Reason For Visit: FALL,LOW BP Discharge Diagnosis: Frequent falls Hypotension Suspected urinary tract infection Benign prostatic hypertrophy Intermittent urinary retention Activity: Resume your previous activity Exercise/Sports: Gradually increase as tolerated Non-emergency contact: Primary Care Provider and Urologist Call non-emergency contact if: you have any medication questions, your symptoms worsen, your pain is concerning for you and you have a fever Follow-up/Referrals: Caleb Pérez MD [Primary Care Provider] - (Date & Time 02/28/2025 1:20 PM Provider: Javid Morris MD [facility]) Diet: Carb Consistent or DM2 and Heart Healthy Addtl Attending Provider Instructions: -- Follow-up with your primary care physician on 02/28/2025 1:20 PM -- Follow-up with your industrial tech instructor for possible ZIO monitor as outpatient given dizziness, recurrent falls. -- Follow-up with your urologist for further management of benign prostatic hypertrophy as recommended 1)-- Your urine culture is pending at the time of discharge. Follow-up with your physician for results. You are started on empiric antibiotic for possible urinary tract infection. Follow-up with your primary care physician for further instructions on follow-up visit. 2)--Monitor your blood pressure regularly as advised. Discuss with your primary care physician for further adjustment of medications as needed 3)--Hold taking your lisinopril, tamsulosin for now until further recommendations from your primary care physician, urologist. 4)--Use compression stockings as advised to help with your leg edema. 5)--Discuss with your industrial tech instructor regarding risks Vs benefits of being on Eliquis (blood thinner) as advised. Seek immediate medical attention if your symptoms reoccur or worsen Please review medication list provided on discharge for any medication changes as instructed. Please call if you have any questions or problems. You can reach a [facility] hospitalist on duty at [facility] 24 hours a day by calling [phone] Pending Studies at Discharge: Yes Studies:: Urine culture Stand-Alone Forms: My [facility] [employer], Smoking Cessation Medications and DC Order Prescriptions: New cefdinir 300 mg capsule 300 mg PO BID Qty: 6 0RF Rx Instructions: Start taking from 02/27/2025 Continued atorvastatin 40 mg Tablet 40 mg PO HS fluocinonide 0.05 % Ointment 1 applic TOPICAL BID PRN (Reason: Rash) aspirin 81 mg Tablet,Delayed Release (Dr/Ec) 81 mg PO QAM Rx Instructions: Unable to verify OTC meds at this date/time. nitroglycerin 0.4 mg Tablet, Sublingual 0.4 mg sublingual DIRECTED PRN (Reason: Angina) metformin 500 mg Tablet Extended Release 24 Hr 1,000 mg PO PM finasteride 5 mg Tablet 5 mg PO QAM magnesium oxide 400 mg magnesium Tablet 400 mg PO QPM Rx Instructions: Unable to verify OTC meds at this date/time. albuterol sulfate 2.5 mg /3 mL (0.083 %) solution for nebulization 2.5 mg continuous nebulization Q4H PRN (Reason: Shortness Of Breath Or Wheezing) furosemide 20 mg tablet 20 mg PO QAM metoprolol succinate 25 mg tablet extended release 24 hr 25 mg PO BID escitalopram oxalate 5 mg tablet 5 mg PO QAM Eliquis 5 mg tablet 5 mg PO BID Trelegy Ellipta 100-62.5-25 mcg blister with device 1 inh INHALATION DAILY Held lisinopril 20 mg Tablet 0 mg PO QAM Hold Instructions: Until further recommendations from your primary care physician Rx Instructions: Per pharmacy, this medication is discontinued. However pt states he is still taking. There is a 30mg on file, and it is also discontinued. Original Directions: 20mg by mouth in the morning tamsulosin 0.4 mg capsule 0.8 mg PO DAILY Hold Instructions: Until further recommendations from your primary care physician Discharge Orders: Discharge Order (Routine); Ordered 02/26/25 Ordered By: Abel Mckeon/Other Patient Handouts: Managing Type 2 Diabetes, Diabetes: Meal Planning Admission Data Admit Date/Time: 02/25/25 14:15 Attending Provider: Abel Osborne Admit Provider: Juan José Hogan Primary Care Provider: Caleb Pérez
[2025-02-26 16:09] VITALS: BP 131/80; PULSE 62
== END 2025-02-26 16:36 | disposition home or self-care (01) | DRG 312 ==
LOC: ED 11:14 → 2N 14:15 → SUATTDRO 14:15 → 2N 16:29